=== PATIENT | female | born 2005 | race Caucasian/White ===

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

== ENCOUNTER 2024-01-05 16:12 | Emergency (ER) | payer OTHER, SELFPAY ==
[2024-01-05 16:28] VITALS: BP 124/67; PULSE 84; RESP 19; TEMP 36.8; O2SAT 98; BMI 21.9
--- NOTE | 2024-01-05 16:41 | ED_ITS ---
HPI - Chest Pain <Adriana Fatima PA-C - Last Filed: 01/05/24 18:32> General Chief Complaint: Chest Pain Stated Complaint: tightness in chest, elevated bp? 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 she points to her subxiphoid region and radiating to the left upper quadrant. She had some associated nausea but no vomiting she also states that she was breathing fast, and her eyes were ?itching?. 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 She has no GI history or heartburn, the pain does not radiate to the back, denies any lightheadedness or dizziness or weakness, her last meal was this morning eggs and toast. No treatment tried, she feels better overall. No medications no allergies, last menstrual period was December 10, 2023, she reports a history of postural orthostatic tachycardia syndrome with no recent episodes, and ?a valve that is under developed? she is unsure of which 1 but had an echocardiogram 2-1/2 years ago. Her primary care is at [facility]. No upcoming appointments. Related Data Allergies Allergy/AdvReac Type Severity Reaction Status Date / Time No Known Drug Allergies Allergy Verified 01/05/24 16:32 Review of Systems <Adriana Fatima PA-C - Last Filed: 01/05/24 18:32> Review of Systems Narrative: SEE HPI Patient History <Adriana Faitma PA-C - Last Filed: 01/05/24 18:32> Social History Smoking Status: Never smoker Smoking Status: Never smoker alcohol intake frequency: 0-2 drinks per day Substance Use Type: does not use Exam <Adriana Fatima PA-C - Last Filed: 01/05/24 18:32> Initial Vital Signs Initial Vital Signs: Vital Signs Temperature 98.2 F 01/05/24 16:28 Pulse Rate 84 01/05/24 16:28 Respiratory Rate 19 01/05/24 16:28 Blood Pressure 124/67 01/05/24 16:28 Pulse Oximetry 98 01/05/24 16:28 Oxygen Delivery Method Room Air 01/05/24 16:28 <Cj Vaughn MD - Last Filed: 01/15/24 07:37> Initial Vital Signs Initial Vital Signs: Vital Signs Temperature 98.2 F 01/05/24 16:28 Pulse Rate 84 01/05/24 16:28 Respiratory Rate 19 01/05/24 16:28 Blood Pressure 124/67 01/05/24 16:28 Pulse Oximetry 98 01/05/24 16:28 Oxygen Delivery Method Room Air 01/05/24 16:28 Course <Adriana Fatima PA-C - Last Filed: 01/05/24 18:32> Course Course Narrative: Resting comfortably throughout her stay, no new complaints, labs normal, EKG normal, GI cocktail administered. Orders Ordered: Discontinued Medications Al Hydrox/Mg Hydrox/Simethicone 20 ml/ Lidocaine HCl 15 ml 0 ml PO NOW ONE Stop: 01/05/24 17:47 Last Admin: 01/05/24 18:03 Dose: 35 ml Documented By: RLS Reevaluation(s) Reevaluation #1: Re-evaluated after GI cocktail x1. She reports some improvement, pain has not fully resolved however. No new symptoms. Consultations Consultation #1: Discussed the case with Dr. Vaughn, reviewed the 12 lead EKG labs and her improvement following GI cocktail. Vital Signs Vital signs: Vital Signs - 8 hr 01/05/24 16:28 Temperature 98.2 F Pulse Rate 84 Respiratory Rate 19 Blood Pressure 124/67 Pulse Oximetry 98 Oxygen Delivery Method Room Air <Cj Vaughn MD - Last Filed: 01/15/24 07:37> Orders Ordered: Discontinued Medications Al Hydrox/Mg Hydrox/Simethicone 20 ml/ Lidocaine HCl 15 ml 0 ml PO NOW ONE Stop: 01/05/24 17:47 Last Admin: 01/05/24 18:03 Dose: 35 ml Documented By: RLS Vital Signs Vital signs: Vital Signs - 8 hr 01/05/24 16:28 Temperature 98.2 F Pulse Rate 84 Respiratory Rate 19 Blood Pressure 124/67 Pulse Oximetry 98 Oxygen Delivery Method Room Air MDM - Chest Pain <Adriana Fatima PA-C - Last Filed: 01/05/24 18:32> Medical Records Data Medical records narrative: No records available, she is followed [facility] primary care Lab Data Lab results narrative: CBC, CMP, lipase, troponin and CK all normal. 01/05/24 17:05 01/05/24 17:05 Labs: Lab Results 01/05/24 Range/Units 17:05 WBC 8.4 (4.5-11.0) X10^3/uL RBC 4.57 (4.0-5.2) X10^6/uL Hgb 13.3 (12.0-16.0) g/dL Hct 38.8 (36-46) % MCV 84.9 (80-100) fL MCH 29.0 (26-34) PG MCHC 34.2 (30-36) % RDW 12.7 (11.6-14.8) % Plt Count 272 (150-400) X10^3/uL Neut % (Auto) 60.8 (50-75) % Lymph % (Auto) 30.7 (25-40) % [place] % (Auto) 6.7 (3-14) % Eos % (Auto) 1.1 L (2-4) % Baso % (Auto) 0.7 (0-2) % Neut # (Auto) 5100 (2575-6706) /uL Lymph # (Auto) 2600 (5350-5383) /uL [place] # (Auto) 600 (0-900) /uL Eos # (Auto) 100 (0-450) /uL Baso # (Auto) 100 (0-100) /uL Sodium 139 (137-145) mmol/L Potassium 3.7 (3.4-5.1) mmol/L Chloride 104 (98-107) mmol/L Carbon Dioxide 28 (22-32) mmol/L BUN 15 (7-17) mg/dL Creatinine 0.71 (0.52-1.04) mg/dL Estimated GFR > 60 (>60) mL/min BUN/Creatinine Ratio 21.1 (6-22) Glucose 88 (70-100) mg/dL Calcium 9.5 (8.4-10.2) mg/dL Total Bilirubin 0.5 (0.2-1.3) mg/dL AST 29 (14-36) IU/L ALT 20 (<35) IU/L Alkaline Phosphatase 44 (38-126) U/L Total Creatine Kinase 75 (30-135) U/L Troponin I < 0.012 (0.01-0.034) ng/mL Total Protein 7.3 (6.3-8.2) g/dL Albumin 5.0 (3.5-5.0) g/dL Globulin 2.3 (1.7-4.1) g/dL Albumin/Globulin Ratio 2.2 (1.0-2.8) Lipase 102 (23-300) U/L Imaging Data Chest x-ray: My Impression: No acute cardiopulmonary process seen. Radiologist's Impression: PROCEDURE: XR CHEST 1V INDICATIONS: chest pain TECHNIQUE: One view of the chest was acquired. COMPARISON: None. FINDINGS: Surgical changes and devices: None. Lungs and pleura: Lungs are clear. No pleural effusions or pneumothorax. Mediastinum: Mediastinal contours appear normal. Heart size is normal. Bones and chest wall: No suspicious bony lesions. Overlying soft tissues appear unremarkable. IMPRESSION: No acute cardiopulmonary abnormality is seen. Dictated by: Cj Matamoros M.D. on 01/05/2024 at 17:05 Approved by: Cj Matamoros M.D. on 01/05/2024 at 17:06 ECG Data Interpretation: Twelve lead ECG shows a ventricular heart rate of 80 beats per minute, no P or T-wave abnormalities. WI interval is normal 128 milliseconds normal sinus rhythm without ectopy. No priors for comparison. [facility] Narrative Medical decision making narrative: Normal vital signs. Her CBC CMP lipase and troponin were all normal her EKG was also normal sinus rhythm. GI cocktail was given <Cj Vaughn MD - Last Filed: 01/15/24 07:37> Lab Data Labs: Lab Results 01/05/24 Range/Units 17:05 WBC 8.4 (4.5-11.0) X10^3/uL RBC 4.57 (4.0-5.2) X10^6/uL Hgb 13.3 (12.0-16.0) g/dL Hct 38.8 (36-46) % MCV 84.9 (80-100) fL MCH 29.0 (26-34) PG MCHC 34.2 (30-36) % RDW 12.7 (11.6-14.8) % Plt Count 272 (150-400) X10^3/uL Neut % (Auto) 60.8 (50-75) % Lymph % (Auto) 30.7 (25-40) % [place] % (Auto) 6.7 (3-14) % Eos % (Auto) 1.1 L (2-4) % Baso % (Auto) 0.7 (0-2) % Neut # (Auto) 5100 (9633-9232) /uL Lymph # (Auto) 2600 (0766-3353) /uL [place] # (Auto) 600 (0-900) /uL Eos # (Auto) 100 (0-450) /uL Baso # (Auto) 100 (0-100) /uL Sodium 139 (137-145) mmol/L Potassium 3.7 (3.4-5.1) mmol/L Chloride 104 (98-107) mmol/L Carbon Dioxide 28 (22-32) mmol/L BUN 15 (7-17) mg/dL Creatinine 0.71 (0.52-1.04) mg/dL Estimated GFR > 60 (>60) mL/min BUN/Creatinine Ratio 21.1 (6-22) Glucose 88 (70-100) mg/dL Calcium 9.5 (8.4-10.2) mg/dL Total Bilirubin 0.5 (0.2-1.3) mg/dL AST 29 (14-36) IU/L ALT 20 (<35) IU/L Alkaline Phosphatase 44 (38-126) U/L Total Creatine Kinase 75 (30-135) U/L Troponin I < 0.012 (0.01-0.034) ng/mL Total Protein 7.3 (6.3-8.2) g/dL Albumin 5.0 (3.5-5.0) g/dL Globulin 2.3 (1.7-4.1) g/dL Albumin/Globulin Ratio 2.2 (1.0-2.8) Lipase 102 (23-300) U/L Discharge Plan Departure Patient Disposition: Home Clinical Impression: Epigastric abdominal pain Instructions: DI for Epigastric Pain Activity Restrictions/Additional Instructions: I would like you to try some [id number] omeprazole, also known as Prilosec, 20 mg about a half an hour before food in the morning daily for the next couple of weeks. I would like you to follow-up with your primary care provider at the [facility] as well, your labs performed today were all normal, your EKG was also normal. Red flag warning signs include persistent pain, lightheadedness, weakness, fever, any changes to your pain, or any other worrisome symptoms to please return to the emergency department. Your commended for the work that she do at the [facility] thank you for working in healthcare. Stand Alone Forms: Patient Portal/API ED Sign-out <Cj Vaughn MD - Last Filed: 01/15/24 07:37> Cosign ED Attending Segrei Attestation: I was immediately available in the department for consultation. ?This documentation has been reviewed and I agree with assessment and plan. Supervised by Cj Vaughn MD
--- NOTE | 2024-01-05 17:00 | DI.RAD.S_ITS ---
PROCEDURE: XR CHEST 1V INDICATIONS: chest pain TECHNIQUE: One view of the chest was acquired. COMPARISON: None. FINDINGS: Surgical changes and devices: None. Lungs and pleura: Lungs are clear. No pleural effusions or pneumothorax. Mediastinum: Mediastinal contours appear normal. Heart size is normal. Bones and chest wall: No suspicious bony lesions. Overlying soft tissues appear unremarkable. IMPRESSION: No acute cardiopulmonary abnormality is seen. Dictated by: Cj Matamoros M.D. on 01/05/2024 at 17:05 Approved by: Cj Matamoros M.D. on 01/05/2024 at 17:06
--- NOTE | 2024-01-05 17:13 | PC.NURSE ---
no telemetry available. provider aware
[2024-01-05 17:35] LABS: Add Manual Diff / Slide Review NO; Basophils Absolute Auto 100 /uL (0-100); Basophils Percent Auto 0.7 % (0-2); Eosinophils Absolute Auto 100 /uL (0-450); Eosinophils Percent Auto 1.1 % (2-4); Hematocrit 38.8 % (36-46); Hemoglobin 13.3 g/dL (12.0-16.0); Lymphocytes Absolute Auto 2600 /uL (1100-4500); Lymphocytes Percent Auto 30.7 % (25-40); Mean Corpuscular HGB Conc 34.2 % (30-36); Mean Corpuscular Volume 84.9 fL (80-100); Monocytes Absolute Auto 600 /uL (0-900); Monocytes Percent Auto 6.7 % (3-14); Neutrophils Absolute Auto 5100 /uL (1500-7000); Neutrophils Percent Auto 60.8 % (50-75); Platelet Count 272 X10^3/uL (150-400); Red Blood Cell Count 4.57 X10^6/uL (4.0-5.2); Red Cell Distribution Width 12.7 % (11.6-14.8); White Blood Cell Count 8.4 X10^3/uL (4.5-11.0)
[2024-01-05 17:43] LABS: Alanine Aminotransferase 20 IU/L (<35); Albumin Globulin Ratio 2.2 (1.0-2.8); Alkaline Phosphatase 44 U/L (38-126); Aspartate Aminotransferase 29 IU/L (14-36); BUN Creatinine Ratio 21.1 (6-22); Bilirubin Total 0.5 mg/dL (0.2-1.3); Blood Urea Nitrogen 15 mg/dL (7-17); Calcium 9.5 mg/dL (8.4-10.2); Carbon Dioxide 28 mmol/L (22-32); Chloride 104 mmol/L (98-107); Creatine Kinase 75 U/L (30-135); Estimated Glomerular Filt Rate > 60 mL/min (>60); Globulin 2.3 g/dL (1.7-4.1); Glucose 88 mg/dL (70-100); HEMOLYSIS 21 (0-50); Lipase 102 U/L (23-300); Potassium 3.7 mmol/L (3.4-5.1); Sodium 139 mmol/L (137-145); Total Protein 7.3 g/dL (6.3-8.2)
[2024-01-05 17:54] LABS: Troponin I < 0.012 ng/mL (0.01-0.034)
[2024-01-05] MEDS: MAG HYDROX/ALUMINUM/SIMETH SUS 20 ML, LIDOCAINE VISCOUS 2% 15 ML PO (18:03)
== END 2024-01-05 18:48 | disposition home or self-care (01) ==
PROVIDERS: Emergency Provider Physician Assistant Medical
DX: R10.13 Epigastric pain (principal); R07.9 Chest pain, unspecified
CPT/HCPCS: 36415; 71045; 80053; 82550; 83690; 84484; 85025; 93005; 99284